=== PATIENT | female | born 1965 | race Caucasian/White ===

== ENCOUNTER 2019-12-27 18:32 | Observation (INO) ==
--- NOTE | 2019-12-27 18:51 | Emergency Department Note ---
History of Present Illness General Chief complaint: Abdominal Pain Stated complaint: LOW GRADE FEVER - ABD PAIN IN R LOWER SIDE Time Seen by Provider: 12/27/19 18:37 Source: patient History of Present Illness Provider complaint: Abdominal pain Onset (ago): day(s) Location: abdomen and right Radiation: non-radiation Severity: moderate Pain Consistency: + constant Maximum Pain Intensity: 7 Quality: + sharp Relieved By: + none Associated symptoms: + fever/chills; no chest pain, no cough, no headaches, no nausea/vomiting and no shortness of breath This is a 54-year-old female presents with abdominal pain since yesterday morning. The patient states it started as a diffuse gassy-like pain. Last night it started to go into her right lower quadrant and can be sharp at times. She rates it a 7 out of 10 in severity. No alleviating factors. It is associated with loss of appetite, fever up to 100.7 and fatigue. The patient de nies any chest pain, shortness of breath, cough or cold symptoms, urinary symptoms or abnormal vaginal discharge or bleeding. She denies any known exposure to COVID-19. She is postmenopausal. Home Medications Home Medications Medication Instructions Recorded Confirmed Type ergocalciferol (vitamin D2) 50,000 unit PO WK 12/27/19 12/27/19 History olmesartan 0 mg PO DAILY 12/27/19 12/27/19 History Allergies Allergy/AdvReac Type Severity Reaction Status Date / Time No Known Allergies Allergy Verified 12/27/19 20:30 Past Med/Surg History Medical History Hypertension Social History Smoking Status: Former smoker Feels Safe at Home: Yes Review of Systems See HPI for pertinent positives & negatives. and A total of 10 systems reviewed and were otherwise negative Physical Exam Vital Signs Vital Signs - 24 hr 12/27/19 18:34 12/27/19 19:11 12/27/19 19:40 Temperature 38.1 C H Temperature Source Oral Pulse Rate 117 H Pulse Rate [Left Apical] 110 H Pulse Rate from SpO2 Sensor Pulse Rhythm [Left Apical] Regular Pulse Strength [Left Apical] Normal Respiratory Rate 20 21 Respiratory Effort / Characteristics Non-Labored Spontaneous Respiratory Depth Normal Blood Pressure 181/120 H Blood Pressure [Left Arm] 175/113 H Blood Pressure Mean 140 Blood Pressure Mean [Left Arm] 133 Blood Pressure Position [Left Arm] Sitting Pulse Oximetry 96 96 Oxygen Delivery Method Room Air Room Air Room Air Sepsis Recent Fever Within 48 Hours Yes Sepsis New/Unexplained Change in Mental Status No Sepsis Action Taken by Nursing No Action Required 12/27/19 19:55 12/27/19 20:00 12/27/19 20:30 Temperature 37.2 C Temperature Source Oral Pulse Rate 107 H Pulse Rate [Left Apical] 105 H Pulse Rate from SpO2 Sensor Pulse Rhythm [Left Apical] Pulse Strength [Left Apical] Respiratory Rate 15 Respiratory Effort / Characteristics Respiratory Depth Blood Pressure 156/103 H Blood Pressure [Left Arm] Blood Pressure Mean 120 Blood Pressure Mean [Left Arm] Blood Pressure Position [Left Arm] Pulse Oximetry Oxygen Delivery Method Sepsis Recent Fever Within 48 Hours Sepsis New/Unexplained Change in Mental Status Sepsis Action Taken by Nursing 12/27/19 20:31 12/27/19 21:00 12/27/19 21:01 Temperature Temperature Source Pulse Rate 110 H 108 H 110 H Pulse Rate [Left Apical] Pulse Rate from SpO2 Sensor 110 H 107 H 110 H Pulse Rhythm [Left Apical] Pulse Strength [Left Apical] Respiratory Rate 20 15 12 Respiratory Effort / Characteristics Respiratory Depth Blood Pressure 156/102 H 169/120 H Blood Pressure [Left Arm] Blood Pressure Mean 132 128 Blood Pressure Mean [Left Arm] Blood Pressure Position [Left Arm] Pulse Oximetry 96 99 98 Oxygen Delivery Method Sepsis Recent Fever Within 48 Hours Sepsis New/Unexplained Change in Mental Status Sepsis Action Taken by Nursing 12/27/19 21:30 12/27/19 21:31 Temperature Temperature Source Pulse Rate 113 H 104 H Pulse Rate [Left Apical] Pulse Rate from SpO2 Sensor 112 H 106 H Pulse Rhythm [Left Apical] Pulse Strength [Left Apical] Respiratory Rate 22 14 Respiratory Effort / Characteristics Respiratory Depth Blood Pressure 179/120 H Blood Pressure [Left Arm] Blood Pressure Mean 139 Blood Pressure Mean [Left Arm] Blood Pressure Position [Left Arm] Pulse Oximetry 98 99 Oxygen Delivery Method Sepsis Recent Fever Within 48 Hours Sepsis New/Unexplained Change in Mental Status Sepsis Action Taken by Nursing Constitutional: Vital signs reviewed. Eyes: Pupils are equal round reactive to light. Conjunctiva are noninjected. ENT: Pharynx is clear without erythema or exudate. Mucous membranes are moist. Neck supple without meningeal signs. Respiratory: Clear to auscultation bilaterally. Breath sounds are equal bilaterally. Cardiovascular: Tachycardic. Heart rate 112. GI: Soft, nondistended right lower quadrant tenderness without guarding. Bowel sounds are present. Musculoskeletal: No peripheral edema. No CVA tenderness. Integumentary: No cyanosis. or jaundice. Neurological: The patient is awake and alert. No focal deficits. Psychiatric: Normal affect. Not anxious appearing. Course Administered Medications Discontinued Medications Sodium Chloride (Nss) 500 mls @ 999 mls/hr IV .Q31M SNOW Stop: 12/27/19 19:30 Last Infusion: 12/27/19 19:44 Dose: 0 mls/hr Documented by: [id number] Admin: 12/27/19 19:13 Dose: 999 mls/hr Documented by: [id number] Ioversol (Ioversol 100ml) 94 ml IV ONCE ONE Stop: 12/27/19 20:31 Last Admin: 12/27/19 20:31 Dose: 94 ml Documented by: [id number] Morphine Sulfate (Morphine Sulfate 10 Mg/Ml Carp/Vial) 6 mg IV NOW STA Stop: 12/27/19 20:32 Last Admin: 12/27/19 21:37 Dose: Not Given Documented by: [id number] Morphine Sulfate (Morphine Sulfate 4 Mg/Ml 1 Ml Carp\Vial) Confirm Administered Dose 4 mg .ROUTE .STK-MED ONE Stop: 12/27/19 21:30 Last Admin: 12/27/19 21:37 Dose: 4 mg Documented by: [id number] Morphine Sulfate (Morphine Sulfate 2 Mg/Ml Carp) Confirm Administered Dose 2 mg .ROUTE .STK-MED ONE Stop: 12/27/19 21:31 Last Admin: 12/27/19 21:36 Dose: 2 mg Documented by: [id number] Ondansetron HCl (Ondansetron Inj 2 Mg/Ml 2 Ml Vial) 4 mg IV NOW STA Stop: 12/27/19 20:32 Last Admin: 12/27/19 21:36 Dose: 4 mg Documented by: [id number] Medical Decision Making Differential Diagnosis Acute appendicitis, perforation, abscess, diverticulitis, ovarian cyst Medical Records Attestation: I reviewed the patient's medical records. I did perform a limited focused review of portions of the patient's old chart on the electronic medical record. The patient has had no prior visits to this hospital. Home Medications Current Medication List: was personally reviewed by me Laboratory Data Attestation: I reviewed the patient's lab results. Result diagrams: 12/27/19 19:00 12/27/19 19:00 Lab Results 12/27/19 12/27/19 12/27/19 Range/Units 18:45 19:00 19:00 WBC 10.54 (4.8-10.8) K/uL RBC 3.87 L (4.2-5.4) M/uL Hgb 13.7 (12.0-16.0) g/dL Hct 39.6 (37-47) % MCV 102.3 H (80-100) fL MCH 35.4 H (25-34) pg MCHC 34.6 (32-36) g/dL RDW Std Deviation 49.6 H (36.4-46.3) fL RDW Coeff of [place] 13.4 (11.5-14.5) % Plt Count 138 (130-400) K/uL MPV 9.1 (7.4-10.4) fL Immature Gran % (Auto) 0.3 % Neut % (Auto) 84.4 % Lymph % (Auto) 6.6 % Upson % (Auto) 7.9 % Eos % (Auto) 0.7 % Baso % (Auto) 0.1 % Neut # (Auto) 8.90 H (1.4-6.5) K/uL Lymph # (Auto) 0.70 L (1.2-3.4) K/uL Upson # (Auto) 0.83 H (0.11-0.59) K/uL Eos # (Auto) 0.07 (0-0.5) K/uL Baso # (Auto) 0.01 (0-0.2) K/uL Immature Gran # (Auto) 0.03 H (0.00-0.02) K/uL Sodium 136 (136-145) mmol/L Potassium 3.6 (3.5-5.1) mmol/L Chloride 101 (98-107) mmol/L Carbon Dioxide 26 (21-32) mmol/L Anion Gap 9.0 (3-11) BUN 11 (7-18) mg/dl Creatinine 0.86 (0.6-1.2) mg/dl Est Cr Clr Drug Dosing 86.8 ml/min Est GFR ( Amer) 89.4 Est GFR (Non-Af Amer) 77.1 BUN/Creatinine Ratio 12.4 (10-20) Glucose 92 (70-99) mg/dl Calcium 9.5 (8.5-10.1) mg/dl Total Bilirubin 1.9 H (0.2-1) mg/dl AST 21 (15-37) U/L ALT 48 (12-78) U/L Alkaline Phosphatase 74 (45-117) U/L Total Protein 7.7 (6.4-8.2) gm/dl Albumin 4.0 (3.4-5.0) gm/dl Globulin 3.7 (2.5-4.0) gm/dl Albumin/Globulin Ratio 1.1 (0.9-2) Lipase 148 (73-393) U/L Urine Color Yellow Urine Appearance Clear (Clear) Urine pH 5.0 (4.5-7.5) Ur Specific [place] 1.008 (1.000-1.030) Urine Protein Negative (Negative) Urine Glucose (UA) Negative (Negative) Urine Ketones Trace H (Negative) Urine Blood Negative (Negative) Urine Nitrite Negative (Negative) Urine Bilirubin Negative (Negative) Urine Urobilinogen Negative (Negative) Ur Leukocyte Esterase 1+ H (Negative) Urine WBC (Auto) 5-10 H (0-5) /hpf Urine RBC (Auto) 0-4 (0-4) /hpf U Hyaline Cast (Auto) 0 (0-5) /lpf U Epithel Cells (Auto) >30 H (0-5) /lpf Urine Bacteria (Auto) Negative (Negative) COVID-19 Eval Order 12/27/19 Range/Units 21:25 WBC (4.8-10.8) K/uL RBC (4.2-5.4) M/uL Hgb (12.0-16.0) g/dL Hct (37-47) % MCV (80-100) fL MCH (25-34) pg MCHC (32-36) g/dL RDW Std Deviation (36.4-46.3) fL RDW Coeff of [place] (11.5-14.5) % Plt Count (130-400) K/uL MPV (7.4-10.4) fL Immature Gran % (Auto) % Neut % (Auto) % Lymph % (Auto) % Upson % (Auto) % Eos % (Auto) % Baso % (Auto) % Neut # (Auto) (1.4-6.5) K/uL Lymph # (Auto) (1.2-3.4) K/uL Upson # (Auto) (0.11-0.59) K/uL Eos # (Auto) (0-0.5) K/uL Baso # (Auto) (0-0.2) K/uL Immature Gran # (Auto) (0.00-0.02) K/uL Sodium (136-145) mmol/L Potassium (3.5-5.1) mmol/L Chloride (98-107) mmol/L Carbon Dioxide (21-32) mmol/L Anion Gap (3-11) BUN (7-18) mg/dl Creatinine (0.6-1.2) mg/dl Est Cr Clr Drug Dosing ml/min Est GFR ( Amer) Est GFR (Non-Af Amer) BUN/Creatinine Ratio (10-20) Glucose (70-99) mg/dl Calcium (8.5-10.1) mg/dl Total Bilirubin (0.2-1) mg/dl AST (15-37) U/L ALT (12-78) U/L Alkaline Phosphatase (45-117) U/L Total Protein (6.4-8.2) gm/dl Albumin (3.4-5.0) gm/dl Globulin (2.5-4.0) gm/dl Albumin/Globulin Ratio (0.9-2) Lipase (73-393) U/L Urine Color Urine Appearance (Clear) Urine pH (4.5-7.5) Ur Specific [place] (1.000-1.030) Urine Protein (Negative) Urine Glucose (UA) (Negative) Urine Ketones (Negative) Urine Blood (Negative) Urine Nitrite (Negative) Urine Bilirubin (Negative) Urine Urobilinogen (Negative) Ur Leukocyte Esterase (Negative) Urine WBC (Auto) (0-5) /hpf Urine RBC (Auto) (0-4) /hpf U Hyaline Cast (Auto) (0-5) /lpf U Epithel Cells (Auto) (0-5) /lpf Urine Bacteria (Auto) (Negative) COVID-19 Eval Order Covid19 IDNow [facility] Imaging Data Radiologist's Impression: CT ABDOMEN & PELVIS With Contrast: Appendicolith and 2 cm dilation of an inflamed appendix consistent with acute appendicitis. No rupture or abscess identified. Mild fatty infiltration of the liver. No focal liver lesion is seen. The gallbladder, pancreas, spleen, adrenal glands, and kidneys appear nonacute. 3.6 cm right ovarian cyst. The urinary bladder is completely decompressed and unremarkable. Mild degenerative changes in the lower lumbar spine. No acute fracture or subluxation is seen. Radiologist: Ernesto Kaye MD Study ready at 20:37 and initial results transmitted at 21:21 Blood Pressure Blood Pressure Findings: Elevated blood pressure Blood Pressure Disposition: Referred to patients primary care provider HALINA Narrative I did evaluate the patient as noted above. She is presenting with a history and physical examination consistent with acute appendicitis. She was made n.p.o. IV access was established. I did treat her with normal saline IV. She declined any pain or nausea medications. I did order a urine analysis. She does not have a UTI. I did order and review the patient's blood work as noted in the electronic medical record. Her white count is 10.5. She is not anemic. Electrolytes are unremarkable. I did order a preop COVID test. I did order a CT of the abdomen and pelvis. I did review the images myself as well as the radiology report as described above. Per my reading she has acute appendicitis. I did discuss this with her. She was agreeable to some pain medication at this point as she persistently is tachycardic and hypertensive. I did treat her with IV morphine and Zofran. Once the official reading was obtained I did discuss this with her. I did discuss the case with the surgical service who evaluated patient and took her to the operating room for appendectomy. Impression & Plan Appendicitis Discharge Plan Visit Data Chief Complaint: Abdominal Pain Stated Complaint: LOW GRADE FEVER - ABD PAIN IN R LOWER SIDE ED Provider: John Self Discharge Problem: Appendicitis Patient Disposition: Being Evaluated by Surgeon Forms Stand Alone Forms: My [facility] Prescriptions Prescriptions: No Action ergocalciferol (vitamin D2) 50,000 unit Tablet 50,000 unit PO WK RF: 0 olmesartan 5 mg Tablet 0 mg PO DAILY RF: 0 Referrals Referrals: PCP,NO [Primary Care Provider] - Discharge Problem: Appendicitis Qualifiers: Appendicitis type: acute appendicitis Acute appendicitis type: unspecified acute appendicitis type Qualified Code(s): K35.80 - Unspecified acute appendicitis
[2019-12-27] MEDS ORDERED: SODIUM CHLORIDE 0.9% 500 ML IV SCH (19:00)
[2019-12-27 19:25] LABS: Basophils # (auto) 0.01 K/uL (0-0.2); Basophils % (auto) 0.1 %; Eosinophils # (auto) 0.07 K/uL (0-0.5); Eosinophils % (auto) 0.7 %; Hematocrit (blood only) 39.6 % (37-47); Hemoglobin 13.7 g/dL (12.0-16.0); Immature Granulocytes # (auto) 0.03 K/uL (0.00-0.02); Immature Granulocytes % (auto) 0.3 %; Lymphocytes % (auto) 6.6 %; Mean Corpuscular Hemoglobin 35.4 pg (25-34); Mean Corpuscular Hgb Conc 34.6 g/dL (32-36); Mean Corpuscular Volume 102.3 fL (80-100); Mean Platelet Volume 9.1 fL (7.4-10.4); Monocytes # (auto) 0.83 K/uL (0.11-0.59); Monocytes % (auto) 7.9 %; Neutrophils % (auto) 84.4 %; Platelet Count 138 K/uL (130-400); RDW Coefficient of Variation 13.4 % (11.5-14.5); RDW Standard Deviation 49.6 fL (36.4-46.3); Red Blood Count 3.87 M/uL (4.2-5.4); White Blood Count 10.54 K/uL (4.8-10.8)
[2019-12-27 19:28] LABS: Appearance Urine Clear (Clear); Bacteria Urine Automated Negative (Negative); Bilirubin Urine Negative (Negative); Blood Urine Negative (Negative); Cast Urine Automated 0 /lpf (0-5); Color Urine Yellow; Epithelial Cell Urine Auto >30 /lpf (0-5); Glucose Urine UA Negative (Negative); Ketones Urine Trace (Negative); Leukocyte Esterase Urine 1+ (Negative); Nitrite Urine Negative (Negative); Protein Urine Negative (Negative); RBC Urine Automated 0-4 /hpf (0-4); Specific Gravity Urine 1.008 (1.000-1.030); Urobilinogen Urine Negative (Negative)
[2019-12-27 19:51] LABS: BUN Creatinine Ratio 12.4 (10-20); Calcium 9.5 mg/dl (8.5-10.1); Creatinine Clr Calc Pharmacy 86.8 ml/min; Est GFR (African American) 89.4; Est GFR (Non-African American) 77.1; Potassium 3.6 mmol/L (3.5-5.1)
[2019-12-27 19:53] LABS: Albumin Globulin Ratio 1.1 (0.9-2); Bilirubin,Total 1.9 mg/dl (0.2-1); Globulin 3.7 gm/dl (2.5-4.0); Total Protein 7.7 gm/dl (6.4-8.2)
[2019-12-27] MEDS ORDERED: IOVERSOL 100ml IV ONE (20:30)
[2019-12-27] MEDS ORDERED: MoRPHine SULFATE 10 MG/ML CARP/VIAL IV STA (20:31)
[2019-12-27] MEDS ORDERED: ONDANSETRON INJ 2 MG/ML 2 ML VIAL IV STA (20:31)
[2019-12-27] MEDS ORDERED: MoRPHine SULFATE 4 MG/ML 1 ML CARP\\VIAL ONE (21:29)
[2019-12-27] MEDS ORDERED: MoRPHine SULFATE 2 MG/ML CARP ONE (21:30)
[2019-12-27] MEDS ORDERED: cefOXitin 2,000 MG/60 ML BAG IV STA (21:36)
--- NOTE | 2019-12-27 21:42 | History & Physical Report ---
Date of Service December 27, 2019 Assessment & Plan (1) Appendicitis: -will plan on appendectomy this evening -will administer antibiotic in the form of cefoxitin -keep npo -discussed surgical indications with pat. and she wishes to proceed History of Present Illness Chief Complaint: Abdminal pain Primary Care Provider: NO PCP 54 year old female developed generalized abdominal pain yesterday. The pain persisted and shifted to RLQ. She has had low grade fevers but no chills. She has had a poor apatite and nausea. In the ED, she was noted to be afebrile with normal WBC. CT scan of abdomen showed concern for acute appendicitis. At the time of my exam she was in no distress. Allergies Allergy/AdvReac Type Severity Reaction Status Date / Time No Known Allergies Allergy Verified 12/27/19 20:30 Home Medications Home Medications Medication Instructions Recorded Confirmed Type ergocalciferol (vitamin D2) 50,000 unit PO WK 12/27/19 12/27/19 History olmesartan 0 mg PO DAILY 12/27/19 12/27/19 History Past Med/Surg History Medical History Hypertension Social History Smoking Status: Former smoker Feels Safe at Home: Yes Review of Systems Constitutional: no fever and no chills Eyes: no blind spots Ear, Nose, Mouth, Throat: no ear pain Respiratory: no cough and no dyspnea Cardiovascular: no chest pain Gastrointestinal: + abdominal pain and + nausea Genitourinary: no dysuria Musculoskeletal: no back pain Integumentary: no rash Neurologic: no localized weakness Physical Exam Constitutional: well developed and well nourished; no acute distress Eyes: no conjunctival abnormality ENMT: Ears: no hearing impairment Neck: trachea midline Respiratory: normal respiratory effort, lungs clear to auscultation Cardiovascular: Rate/Rhythm: regular rate and regular rhythm Gastrointestinal (Abdomen): Percussion/Palpation: + abdomen tender (RLQ) and abdomen soft Musculoskeletal: no calf pain Skin: no rashes, warm and dry Neurologic: moves all extremities Psychiatric: A+Ox3, euthymic affect Results & Data Results & Data ([facility]) Vital Signs (Past 12 Hours) Vital Signs Temp Pulse Pulse Resp BP BP Pulse Ox 12/27/19 21:01 110 H 12 98 12/27/19 21:00 108 H 15 169/120 H 99 12/27/19 20:31 110 H 20 156/102 H 96 12/27/19 20:30 107 H 15 12/27/19 20:00 156/103 H 12/27/19 19:55 37.2 C 105 H 12/27/19 19:40 110 H 21 175/113 H 96 12/27/19 18:34 38.1 C H 117 H 20 181/120 H 96 Supervising Physician Co-Signing Physician Notes As per Nabeel ESQUIVEL Localized tenderness and rebound right lower quadrant CT scan was reviewed lab was also reviewed Has not eaten anything since yesterday We will plan for laparoscopic appendectomy possible open risk and complication of procedure including bleeding infection injury to other organs and she would like to proceed accordingly Also discussed with her the anticipated recovery time PG Care Time/CCT Total # of Minutes Spent Total Time Spent with Patient: Total time spent is greater than 50% in coordination of care (as documented) at patient's floor/unit and/or counseling patient: Coding Level of Care Code 93362 OBS Care - Level 3 Diagnoses Appendicitis K37
[2019-12-27] MEDS ORDERED: LIDOCAINE/EPINEPHRINE 1% 20 ML VIAL ONE (23:03)
[2019-12-27] MEDS ORDERED: HYDROmorphone INJ 2 MG/ML SYR/VIAL IV PRN (23:04)
[2019-12-27] MEDS ORDERED: ePHEDrine sulfate 50 MG/ML AMP IV PRN (23:04)
[2019-12-27] MEDS ORDERED: fentaNYL citrate 100 MCG/2 ML VIAL IV PRN (23:04)
[2019-12-27] MEDS ORDERED: PROMETHAZINE HCL 6.25 MG in SODIUM CHLORIDE 0.9% 50 ML IV PRN (23:04)
[2019-12-27] MEDS ORDERED: ATROPINE SULFATE 0.1 MG/ML 10ML SYR IV PRN (23:04)
[2019-12-27] MEDS ORDERED: ONDANSETRON INJ 2 MG/ML 2 ML VIAL IV PRN (23:04)
--- NOTE | 2019-12-27 23:04 | Anesthesiology Consultation ---
Date of Service December 27, 2019 Assessment & Plan (1) Encounter for pre-operative examination: Chart Review Chart Review: Acceptable Risk for Surgery and Patient NOT seen in Pre Admission Testing Consults Requested none ASA [id number] Proposed Anesthesia Risk / Benefits Reviewed With: PT / POA / Parent / Guardian, Accepts Plan and Informed Consent Obtained History Surgery Operation Date: 12/27/19 23:00 Proposed Procedures p Laparoscopic Appendectomy - Dami Belcher MD Height/Weight Height: 5 ft 6 in Weight: 92.7 kg Allergies Allergy/AdvReac Type Severity Reaction Status Date / Time No Known Allergies Allergy Verified 12/27/19 20:30 Medications Home Medications Medication Instructions Recorded Confirmed Last Taken ergocalciferol (vitamin D2) 50,000 unit PO WK 12/27/19 12/27/19 Unknown olmesartan 0 mg PO DAILY 12/27/19 12/27/19 Unknown NPO Date Last Intake of Fluids: 12/27/19 Time Last Intake of Fluids: 16:00 Date Last Intake of Solids: 12/26/19 Time Last Intake of Solids: 14:00 Past Medical History Medical History Hypertension Exercise / Class Metabolic Activity II 4-5 Yardwork/Stairs/Walk up hill Past Anesthesia History No Hx of Anesthesia Complications and No Family Hx of Anesthesia Complications History of PONV No Hx of PONV and No Hx of Motion Sickness Social History Smoking Status: Former smoker Physical Exam Vital Signs Last Vital Signs Temp 37.2 C 12/27/19 19:55 Pulse 108 H 12/27/19 22:42 Resp 17 12/27/19 22:15 BP 156/105 H 12/27/19 22:42 Pulse Ox 99 12/27/19 21:31 ENMT Mouth: no dentition abnormality Thyromental Distance: > or= 3.5 Finger Breadths Mallampati Class: II Neck normal visual inspection Respiratory normal respiratory effort Auscultation: lungs clear to auscultation bilaterally Cardiovascular Rate/Rhythm: regular rate and regular rhythm Psychiatric Orientation: alert Testing Laboratory Results 12/27/19 19:00 12/27/19 19:00 Urine Color Yellow 12/27/19 18:45 Urine Appearance Clear (Clear) 12/27/19 18:45 Urine pH 5.0 (4.5-7.5) 12/27/19 18:45 Ur Specific [place] 1.008 (1.000-1.030) 12/27/19 18:45 Urine Protein Negative (Negative) 12/27/19 18:45 Urine Glucose (UA) Negative (Negative) 12/27/19 18:45 Urine Ketones Trace (Negative) H 12/27/19 18:45 Urine Nitrite Negative (Negative) 12/27/19 18:45 Ur Leukocyte Esterase 1+ (Negative) H 12/27/19 18:45 Urine WBC (Auto) 5-10 /hpf (0-5) H 12/27/19 18:45 Urine RBC (Auto) 0-4 /hpf (0-4) 12/27/19 18:45 U Hyaline Cast (Auto) 0 /lpf (0-5) 12/27/19 18:45 U Epithel Cells (Auto) >30 /lpf (0-5) H 12/27/19 18:45 Urine Bacteria (Auto) Negative (Negative) 12/27/19 18:45
[2019-12-27] MEDS ORDERED: fentaNYL citrate 100 MCG/2 ML VIAL ONE (23:32)
[2019-12-28] MEDS ORDERED: GLYCOPYRROLATE 0.2 MG/ML VIAL ONE (00:25)
[2019-12-28] MEDS ORDERED: KETOROLAC 30 MG/ML VIAL ONE (00:25)
[2019-12-28] MEDS ORDERED: SUCCINYLCHOLINE CHLORIDE 20 MG/ML 10 ML VIAL IV ONE (00:25)
[2019-12-28] MEDS ORDERED: MoRPHine SULFATE 2 MG/ML CARP ONE (00:25)
[2019-12-28] MEDS ORDERED: PROPOFOL IV EMULSION 10 MG/ML 20 ML VIAL IV ONE (00:25)
[2019-12-28] MEDS ORDERED: ONDANSETRON INJ 2 MG/ML 2 ML VIAL ONE (00:25)
[2019-12-28] MEDS ORDERED: NEOSTIGMINE METHYLSULFATE 5 MG/5 ML SYR ONE (00:25)
[2019-12-28] MEDS ORDERED: ROCURONIUM BROMIDE 10 MG/ML 5 ML VIAL IV ONE (00:25)
[2019-12-28] MEDS ORDERED: LIDOCAINE HCL 2% 2 ML VIAL/AMP(20MG/ML) INFIL ONE (00:25)
--- NOTE | 2019-12-28 00:29 | Post Operative Brief Note ---
PG Immediate Post Op with CF Date of Surgery December 28, 2019 Pre & Post Diagnosis Operation Date: 12/27/19 23:00 Pre-Op Diagnosis: Acute appendicitis Post-Op Diagnosis: Acute appendicitis I identified the patient and participated in the time-out.: Yes Procedure Operation Date: 12/27/19 23:00 Actual Procedures p Laparoscopic Appendectomy - Dami Belcher MD Surgeon Dami Belcher MD Corporate Quality Manager B Shania ESQUIVEL Estimated Blood Loss 5 Findings Consistent with Post-Op Diagnosis Specimens Specimen Description: Permanent Specimen A: Appendix
--- NOTE | 2019-12-28 00:43 | Operative Report ---
PG Post Operative Report Pre & Post Diagnosis Operation Date: 12/27/19 23:00 Pre-Op Diagnosis: Acute appendicitis Post-Op Diagnosis: Acute appendicitis I identified the patient and participated in the time-out.: Yes Procedure Operation Date: 12/27/19 23:00 Actual Procedures p Laparoscopic Appendectomy - Dami Belcher MD Patient was brought into the operating theater general trach anesthesia supine position abdomen prepped with Betadine solution properly draped a timeout was had patient was identified made a small incision supraumbilically enough to accommodate a 5 mm trocar we started with a Veress needle CO2 insufflated 5 m trocar position without any problem camera followed no injury identified this point we could not see the cecum patient had a significant amount of omentum therefore at this point a 5 mm right upper quadrant trocar was placed with preemptive local analgesic and direct visualization patient was slightly rotated to the left this time I could small bowel was in the right lower quadrant not adherent but it still could not see the cecum therefore at this point we placed a 5 mm left lower quadrant port after we had removed that from the umbilical area enlarged the incision dilating the previous [address] 11 mm trocar camera was placed left lower quadrant patient rotated to the left at this point we were able then to move the small bowel away from the cecum which was identified patient had a fibrinous exudate and what look like the appendix we then freed that up and we can see bluntly dissected the appendix and mesoappendix from the lateral wall elevated completely we then used the right angle grasper to dissect out the mesoappendix which was facing us and clipped that with 10 mm clips we worked our way down to the base of the appendix the appendix was gangrenous but is not perforated we did see some cloudy fluid in the gutter but nothing significant but the gangrenous changes went pretty much to this to the base of the appendix to the cecum we mobilized sufficiently and elevated the appendix and the cecum that we were able to use the purple stapler and resect the appendix and part of the cecum the appendix was placed in an Endopouch and taken out intact through the umbilical port level millimeter trocar was reinserted we then elevated the cecum checked the staple line which was free of any bleeding as was the mesoappendix we placed the patient in reverse Trendelenburg rotated to the right and suctioned out that area. On direct visualization we were able to see the left lower quadrant trocar as we had removed it no bleeding then the umbilical area similarly and last took out the right upper quadrant trocar fascial stitch of 0 Vicryl x2 was used for the umbilical opening approximating the fascia and 04 0 Monocryl subcuticular for the other areas dressing was applied with Steri-Strips procedure tolerated well estimated blood loss 5 cc addendum Nabeel ESQUIVEL was present throughout the procedure and helped the retraction exposure and wound closure Surgeon Dami Belcher MD Open Hearth Worker Chris ESQUIVEL Estimated Blood Loss 5 Findings Consistent with Post-Op Diagnosis Specimens appendix Description of Procedure merda I attest to the content of the Intraoperative Record and any orders documented therein. Any exceptions are noted below.
--- NOTE | 2019-12-28 00:57 | Anesthesiology Progress Note ---
Date of Service December 28, 2019 Anesthesia Post Procedure Vital Signs Vital Signs: Temp Pulse Pulse Resp BP BP Pulse Ox 12/28/19 00:55 37 C 92 H 16 114/69 93 12/28/19 00:50 90 16 109/80 95 12/28/19 00:45 37.2 C 78 16 114/70 94 12/27/19 22:42 108 H 156/105 H 12/27/19 22:15 115 H 17 161/105 H 12/27/19 22:01 113 H 19 12/27/19 22:00 116 H 21 160/107 H 12/27/19 21:45 113 H 12 159/102 H 12/27/19 21:43 114 H 16 169/104 H 12/27/19 21:31 104 H 14 99 12/27/19 21:30 113 H 22 179/120 H 98 12/27/19 21:01 110 H 12 98 12/27/19 21:00 108 H 15 169/120 H 99 12/27/19 20:31 110 H 20 156/102 H 96 12/27/19 20:30 107 H 15 12/27/19 20:00 156/103 H 12/27/19 19:55 37.2 C 105 H 12/27/19 19:40 110 H 21 175/113 H 96 12/27/19 18:34 38.1 C H 117 H 20 181/120 H 96 Pain Intensity Right Lower Abdomen: Pain Intensity: 2 Transfer of Care Handoff Completed per policy Notes Mental Status: alert / awake / arousable Patient Amnestic to Procedure: Yes Nausea / Vomiting: adequately controlled Pain: adequately controlled Airway Patency, RR, SpO2: stable & adequate BP & HR: stable & adequate Hydration State: stable & adequate Anesthetic Complications: no major complications apparent
[2019-12-28] MEDS ORDERED: ONDANSETRON INJ 2 MG/ML 2 ML VIAL IV PRN (01:42)
[2019-12-28] MEDS ORDERED: SODIUM CHLORIDE 0.9% 1000ML 1,000 ML IV SCH (01:42)
[2019-12-28] MEDS ORDERED: MoRPHine SULFATE 2 MG/ML CARP IV PRN (01:42)
[2019-12-28] MEDS ORDERED: OXYCODONE HCL IR 5 MG TAB (IMMEDIATE RELEASE) PO PRN (01:42)
[2019-12-28] MEDS ORDERED: KETOROLAC TROMETHAMINE 15 MG/ML VIAL IV PRN (01:42)
[2019-12-28] MEDS ORDERED: ACETAMINOPHEN 1,000 MG/100 ML VIAL IV SCH (02:00)
[2019-12-28] MEDS ORDERED: cefOXitin 2,000 MG in DEXTROSE 5% 50 ML IV SCH (04:00)
--- NOTE | 2019-12-28 08:33 | CT Scan Report ---
ABDOMEN AND PELVIS CT WITH IV CONTRAST CT DOSE: 927.06 mGy.cm HISTORY: Right lower quadrant pain. Assess for appendicitis. TECHNIQUE: Multiaxial CT images of the abdomen and pelvis were performed following the use of intrave nous contrast. A dose lowering technique was utilized adhering to the principles of ALARA. COMPARISON STUDY: None. FINDINGS: The appendix is distended and fluid-filled measuring up to 1.9 cm. There is a 1 cm appendic olith within the proximal appendix. Mild thickening of the cecal base is likely reactive. There is pe riappendiceal fat stranding. Findings are consistent with acute appendicitis. No perforation or absce ss identified at this time. A 4.3 cm right ovarian cyst. The uterus and left ovary are unremarkable. The bladder is not well-distended but appears within normal limits. No evidence for bowel obstruction . No pelvic lymphadenopathy. No retroperitoneal lymphadenopathy. Normal caliber abdominal aorta. The liver, spleen, adrenal glands, and pancreas unremarkable. There are 2 soft tissue nodule seen abuttin g the anterior wall of the gallbladder with the largest measuring 6 mm. These favor small polyps. Sub centimeter hypodense lesions within the kidneys are too small to characterize but favor cysts. No hyd ronephrosis. The main portal vein is patent. IMPRESSION: 1. Acute appendicitis. 2. A 4.3 cm right ovarian cyst. This could be pathologic if the patient is post menopausal. Follow-up pelvic ultrasound 3 months is recommended for further evaluation. ACT 112: Positive. There are findings on this exam that require communication between the performing entity and the patient following Patient Test Result Information Act ([place] Act 112) guidelines. Electronically signed by: Cuong Haines M.D. 12/28/2019 8:32 AM
--- NOTE | 2019-12-28 09:25 | Surgery Progress Note ---
Date of Service December 28, 2019 Assessment & Plan (1) Appendicitis: POD#1 laparoscopic appendectomy patient clinically doing well; pain manageable advance diet as tolerates will plan for discharge to home today on a course of po abx dispo instructions given & will have her follow up in clinic next wk pt seen and examined with dr. lafleur Admission and Anticipated Discharge Date Admission Date: December 28, 2019 Subjective Patient states she feels pretty good. Tolerating liquid diet. Has some freddy- incisional pain, but is tolerable. Physical Exam Physical Exam: awake/alert; sitting up in bed Respiratory: normal respiratory effort Gastrointestinal (Abdomen): Inspection/Auscultation: + abdominal surgical incision (c/d/i) Results & Data ([facility]) Vital Signs (Past 12 Hours) Vital Signs Temp Pulse Pulse Pulse Resp BP BP 12/28/19 07:13 36.9 C 94 H 18 123/80 12/28/19 03:18 37.0 C 89 18 111/64 12/28/19 02:20 36.9 C 92 H 18 127/82 12/28/19 01:20 37.1 C 94 H 90 18 107/69 12/28/19 01:00 85 16 102/65 12/28/19 00:55 37 C 92 H 16 114/69 12/28/19 00:50 90 16 109/80 12/28/19 00:45 37.2 C 78 16 114/70 12/27/19 22:42 108 H 156/105 H 12/27/19 22:15 115 H 17 161/105 H 12/27/19 22:01 113 H 19 12/27/19 22:00 116 H 21 160/107 H 12/27/19 21:45 113 H 12 159/102 H 12/27/19 21:43 114 H 16 169/104 H 12/27/19 21:31 104 H 14 12/27/19 21:30 113 H 22 179/120 H Pulse Ox 12/28/19 07:13 91 12/28/19 03:18 96 12/28/19 02:20 91 12/28/19 01:20 92 12/28/19 01:00 94 12/28/19 00:55 93 12/28/19 00:50 95 12/28/19 00:45 94 12/27/19 22:42 12/27/19 22:15 09/07/20 22:01 12/27/19 22:00 12/27/19 21:45 12/27/19 21:43 12/27/19 21:31 99 12/27/19 21:30 98 PG Care Time/CCT Total # of Minutes Spent Total Time Spent with Patient: Total time spent is greater than 50% in coordinat ion of care (as documented) at patient's floor/unit and/or counseling patient: Coding Level of Care Code None Diagnoses Appendicitis K35.80 Acute appendicitis type: unspecified acute appendicitis type Appendicitis type: acute appendicitis (1) Appendicitis Acute appendicitis type: unspecified acute appendicitis type Appendicitis type: acute appendicitis Qualified Code(s): K35.80 - Unspecified acute appendicitis
--- NOTE | 2019-12-30 14:38 | Discharge Summary ---
Date of Service December 30, 2019 Admission HPI Per Admitting Provider 54 year old female developed generalized abdominal pain yesterday. The pain persisted and shifted to RLQ. She has had low grade fevers but no chills. She has had a poor apatite and nausea. In the ED, she was noted to be afebrile with normal WBC. CT scan of abdomen showed concern for acute appendicitis. At the time of my exam she was in no distress. Principal Diagnosis acute appendicitis Discharge Exam awake/alert Respiratory normal respiratory effort Gastrointestinal (Abdomen) Inspection/Auscultation: + abdominal surgical incision (c/di) Discharge Data Allergies Allergy/AdvReac Type Severity Reaction Status Date / Time No Known Allergies Allergy Verified 12/27/19 20:30 Procedures Performed Operation Date: 12/27/19 23:00 Actual Procedures p Laparoscopic Appendectomy - Dami Belcher MD Ordered Studies 12/27/19 18:46 CT abd pelvis IV con only Stat Hospital Course (1) Appendicitis: This is a 54y F who presented to the [facility] ED on 12/27/19 with complaints of RLQ pain. Workup in the ED with a CT a/p revealed findings consistent with acute appendicitis. The patient was kept NPO with IVF and started on pre-op antibiotics. On 12/27 the patient went to the OR with Dr. Belcher for a laparoscopic appendectomy. The patient tolerated the procedure well, see op note for full details. Post operatively the patient's pain was managed with prn medication and diet was advanced as tolerated. On 12/27 the patient was voiding on her own, tolerating a diet, and pain well managed. Incisions clean and intact. S he was deemed stable for discharge to home on a course of oral antibiotics due to intraop findings and with instructions to follow up in clinic within 1 week. Total Time Total Time Spent Total Time Spent (In Minutes): 10 Discharge Plan Discharge Items Patient Disposition: Home - Self-Care Reason For Visit: APPY Discharge Diagnosis: laparoscopic appendectomy Activity: Per Instructions section Lifting: No more than 10 pounds Bathing Comment: may shower; no soaking in tubs/pools Exercise/Sports: Wait until after follow-up appointment Driving/Machine Use: wait at least 3 days; do not resume driving while taking narcotics for pain Non-emergency contact: Surgeon Call non-emergency contact if: you have any medication questions, your symptoms worsen, your pain is not controlled, your pain is worsening, you have a fever, your temperature is above 101.5, your wound has increased redness, your wound has increased drainage and your wound pain has increased Follow-up/Referrals: Dami Belcher MD [Surgeon] - 01/03/20 9:30 am (Please call to schedule follow up in clinic within 1 week) PCP,NO [Primary Care Provider] - Diet: Regular Addtl Attending Provider Instructions: You have small white bandages over your incisions called steri-strips. You may shower with these on. they will fall off on their own within 7-10days Pending Studies at Discharge: Yes Studies:: surgical pathology Stand-Alone Forms: My [facility], Opioid Pain Management, Smoking Cessation Medications and DC Order Prescriptions: New amoxicillin-pot clavulanate [Augmentin] 875-125 mg tablet 1 tab PO BID Qty: 10 RF: 0 oxycodone-acetaminophen [Percocet] 5-325 mg tablet 1 - 2 tab PO .q4-6h PRN (Reason: pain, for initial therapy, max 6 tabs per day) Qty: 15 RF: 0 Continued ergocalciferol (vitamin D2) 50,000 unit Tablet 50,000 unit PO WK RF: 0 olmesartan 5 mg Tablet 0 mg PO DAILY RF: 0 Discharge Orders: Discharge Order (Routine); Ordered 12/28/19 Ordered By: Phyllis Levy/Other Patient Handouts: Preventing Deep Vein Thrombosis Admission Data Admit Date/Time: 12/28/19 00:41 Attending Provider: Dami Belcher Admit Provider: Dami Belcher Primary Care Provider: PCP,NO Other Interventions: Discharge Summary Assessment (RN) Last Done: 12/28/19 10:34 Coding Level of Care Code D/C Day Management <30 mins Diagnoses Appendicitis K35.80 Acute appendicitis type: unspecified acute appendicitis type Appendicitis type: acute appendicitis
== END 2019-12-28 13:34 | disposition home or self-care (01) ==
LOC: ED 18:32 → OR 22:42 → 3N 22:42